=== PATIENT | male | born 1985 | race Caucasian/White ===

== ENCOUNTER 2016-03-16 11:33 | Emergency (ER) | payer OTHER ==
[~2016-03-16] VITALS: Ht 193 cm; Wt 76.8 kg
[~2016-03-16 11:33] MED LIST: BACTRIM,SEPT1 TABLET PO; BENTYL10 MG PO; CARAFATE1 GM PO; CARAFATE100 MG/ML PO; CEFADROXIL500 MG PO; CEFTIN500 MG PO; CIPRO500 MG PO; COUMADIN5 MG PO; Colace PO; Coumadin,Jantoven PO; DICLOFENAC SOD100 MG PO; DILAUDID; DILAUDID2 MG PO; DILAUDID4 MG PO; DOXYCYCLINE HY100 M3 PO; DOXYCYCLINE HY100 MG PO; Dilaudid PO; EPIPEN ADU0.3 MG/0.3 IM; FLAGYL500 MG PO; FLEXERIL5 MG PO; FLOMAX0.4 MG PO; HYDROCODON-ACE1 EAC7 PO; IBUPROFEN800 MG PO; IMODIUM MS REL1 EACH PO; LOMOTIL TABLET1 EACH PO; LOVENOX40 MG/0.4 SC; LOVENOX80 MG/0.8 SC; MELOXICAM15 MG PO; METAXALONE800 MG PO; METOCLOPRAMIDE10 MG PO; MOTRIN600 MG PO; MOTRIN800 MG PO; NAPROSYN500 MG; NAPROSYN500 MG PO; NAPROXEN500 MG PO; NO HOME MEDS; NOHOMEMEDS; NORCO 5/3251 TABLET PO; NORCO 7.5/321 TABLET PO; OMEPRAZOLE40 M1 PO; ONDANSETRON HCL4 MG PO; PANTOPRAZOLE SO40 MG PO; PERCOCET 5/31 TABLET PO; PHENERGAN25 MG PR; PREDNISONE50 MG PO; PRILOSEC20 MG PO; PRILOSEC40 MG PO; PROTONIX40 MG PO; Protonix PO; RANITIDINE HCL150 M1 PO; ROBAXIN; ROBAXIN500 MG PO; TIZANIDINE HCL2 MG PO; TRAMADOL HCL50 MG PO; TYLENOL REGULA325 MG PO; TYLENOL WITH C1 EACH PO; ULTRAM50 MG PO; VALIUM5 MG PO; VICODIN 5-3001 EACH PO; VICODIN,LORT1 TABLET PO; XARELTO15 MG PO; ZOFRAN ODT4 MG PO; ZOFRAN ODT8 MG PO; ZOFRAN4 MG PO; ZOFRAN8 MG PO; omeprazole
[2016-03-16] MEDS ORDERED: MOBIC7.5 MG PO (13:15)
[2016-03-16 13:30] VITALS: BP 121/72
== END 2016-03-16 13:31 | disposition home or self-care (01) ==
LOC: EME 11:33
DX: M94.261 Chondromalacia, right knee (principal); M94.262 Chondromalacia, left knee; Z88.0 Allergy status to penicillin; Z88.2 Allergy status to sulfonamides; Z88.6 Allergy status to analgesic agent
CPT/HCPCS: 73564; 99281; 99283; J1885

== ENCOUNTER 2016-03-29 11:58 | Emergency (ER) | payer OTHER ==
[~2016-03-29] VITALS: Ht 193 cm; Wt 78.0 kg
[~2016-03-29 11:58] MED LIST changes: +MOBIC7.5 MG PO
[2016-03-29] MEDS ORDERED: VOLTAREN-XR100 MG PO (12:38)
[2016-03-29] MEDS ORDERED: PROTONIX40 MG PO (12:38)
[2016-03-29 13:07] LABS: ADD MIUA? NO; BILIRUBIN NEGATIVE; BLOOD NEGATIVE; GLUCOSE (STRIP) NEGATIVE; KETONES NEGATIVE; LEUKOCYTES NEGATIVE; NITRITE NEGATIVE; PH, URINE 8.5 (5-8); PROTEIN (STRIP) NEGATIVE; SPECIFIC GRAVITY 1.016 (1.000-1.030); UCUL ADDED? NO; UROBILINOGEN 0.2 MG/DL (0.2-1.0)
[2016-03-29 13:10] LABS: HEMATOCRIT 46.2 % (38.0-50.0); MCH 31.6 PG (29.0-34.0); MCHC 35.1 G/DL (30.0-36.0); MCV 90.2 FL (86-99); MEAN PLAT.VOLUME 10.9 uM^3 (9.0-12.4); PLATELET COUNT 206 K/uL (156-360); RBC DIS.WIDTH-CV 12.5 % (11.8-14.6); RBC DIS.WIDTH-SD 40.9 % (39-53); RED BLOOD COUNT 5.12 M/uL (4.00-5.50); WHITE BLOOD COUNT 6.6 K/uL (4.1-10.2)
[2016-03-29 13:17] LABS: COLOR LT YELLOW ((YELLOW))
[2016-03-29 13:21] LABS: CHLORIDE 105 mEq/L (99-109); POTASSIUM 4.1 mEq/L (3.7-5.4); SODIUM 141 mEq/L (136-147)
[2016-03-29 13:24] LABS: GLUCOSE 90 mg/dL (70-99)
[2016-03-29 13:25] LABS: ANION GAP 11 MEQ/L (2-14); TOTAL BILIRUBIN 0.7 mg/dL (0.0-1.0)
[2016-03-29 13:27] LABS: ALKALINE PHOSPHATASE 94 IU/L (3-129); GFR ESTIMATE (CALCULATED) > 59 mL/min/
[2016-03-29 13:28] LABS: UREA NITROGEN (BUN) 16 mg/dL (9-23)
[2016-03-29 13:31] LABS: LIPASE 32 U/L (1.0-51.0)
[2016-03-29] MEDS ORDERED: ZOFRAN ODT4 MG PO (15:13)
[2016-03-29] MEDS ORDERED: ZANTAC150 MG PO (15:13)
[2016-03-29] MEDS ORDERED: LORTAB 5-325 M1 EACH PO (15:13)
[2016-03-29] MEDS ORDERED: BENTYL20 MG PO (15:13)
[2016-03-29 15:40] VITALS: BP 110/70
== END 2016-03-29 15:41 | disposition home or self-care (01) ==
LOC: EME 11:58
DX: R10.11 Right upper quadrant pain (principal); R19.7 Diarrhea, unspecified; K85.90 Acute pancreatitis without necrosis or infection, unspecified; Z87.442 Personal history of urinary calculi; Z86.718 Personal history of other venous thrombosis and embolism; Z86.14 Personal history of Methicillin resistant Staphylococcus aureus infection
CPT/HCPCS: 74020; 80053; 81003; 83690; 85027; 99281; 99285; J1885; J2405; J7030

== ENCOUNTER 2016-03-31 18:26 | Emergency (ER) | payer OTHER ==
[~2016-03-31] VITALS: Ht 193 cm; Wt 78.3 kg
[~2016-03-31 18:26] MED LIST changes: +BENTYL20 MG PO; +LORTAB 5-325 M1 EACH PO; +VOLTAREN-XR100 MG PO; +ZANTAC150 MG PO
[2016-03-31 18:46] LABS: MCH 31.4 PG (29.0-34.0); MCHC 34.7 G/DL (30.0-36.0); MCV 90.5 FL (86-99); MEAN PLAT.VOLUME 10.5 uM^3 (9.0-12.4); PLATELET COUNT 199 K/uL (156-360); RBC DIS.WIDTH-CV 12.3 % (11.8-14.6); RBC DIS.WIDTH-SD 39.8 % (39-53); RED BLOOD COUNT 4.75 M/uL (4.00-5.50); WHITE BLOOD COUNT 7.1 K/uL (4.1-10.2)
[2016-03-31 18:55] LABS: CHLORIDE 105 mEq/L (99-109); POTASSIUM 3.7 mEq/L (3.7-5.4); SODIUM 140 mEq/L (136-147)
[2016-03-31 18:58] LABS: GLUCOSE 124 mg/dL (70-99)
[2016-03-31 18:59] LABS: ANION GAP 9 MEQ/L (2-14)
[2016-03-31 19:00] LABS: ADD MIUA? NO; BILIRUBIN NEGATIVE; BLOOD NEGATIVE; COLOR YELLOW ((YELLOW)); GLUCOSE (STRIP) NEGATIVE; KETONES NEGATIVE; LEUKOCYTES NEGATIVE; NITRITE NEGATIVE; PROTEIN (STRIP) NEGATIVE; SPECIFIC GRAVITY 1.031 (1.000-1.030); UCUL ADDED? NO; UROBILINOGEN 0.2 MG/DL (0.2-1.0)
[2016-03-31 19:00] LABS: TOTAL BILIRUBIN 0.7 mg/dL (0.0-1.0)
[2016-03-31 19:01] LABS: ALKALINE PHOSPHATASE 84 IU/L (3-129); GFR ESTIMATE (CALCULATED) > 59 mL/min/
[2016-03-31 19:03] LABS: UREA NITROGEN (BUN) 19 mg/dL (9-23)
[2016-03-31 20:01] LABS: LIPASE 36 U/L (1.0-51.0)
[2016-03-31 20:03] LABS: AMPHETAMINE NEGATIVE (500 ng/mL); BARBITURATES NEGATIVE (200 ng/mL); BENZODIAZEPINES NEGATIVE (150 ng/mL); COCAINE NEGATIVE (150 ng/mL); INTERNAL CONTROLS VALID? YES; METHADONE NEGATIVE (200 ng/mL); METHAMPHETAMINE NEGATIVE (500 ng/mL); OPIATES (MORPHINE) PRESUMPTIVE POSITIVE (100 ng/mL); OXYCODONE NEGATIVE (100 ng/mL); PHENCYCLIDINE NEGATIVE (25 ng/mL); PROPOXYPHENE NEGATIVE (300 ng/mL); THC CANNABINOIDS NEGATIVE (50 ng/mL); TRICYCLIC ANTIDEPRESSANTS NEGATIVE (300 ng/mL)
[2016-03-31 20:04] LABS: ADD MEDTOX COMMENT Y
[2016-03-31] MEDS ORDERED: PROMETHAZINE HC25 M1 PO (22:17)
[2016-03-31] MEDS ORDERED: BENTYL20 MG PO (22:17)
[2016-03-31] MEDS ORDERED: PHENERGAN25 MG PR (22:17)
[2016-03-31 22:43] VITALS: BP 122/76
== END 2016-03-31 22:45 | disposition home or self-care (01) ==
LOC: EME 18:26 → EXP 18:26
DX: R10.11 Right upper quadrant pain (principal); R11.2 Nausea with vomiting, unspecified; K21.9 Gastro-esophageal reflux disease without esophagitis; J45.909 Unspecified asthma, uncomplicated; Z87.442 Personal history of urinary calculi; Z86.718 Personal history of other venous thrombosis and embolism; Z86.14 Personal history of Methicillin resistant Staphylococcus aureus infection
CPT/HCPCS: 74176; 80053; 81003; 83690; 84999; 85027; 99281; 99284; J2550; J3010

== ENCOUNTER 2016-04-02 16:09 | Emergency (ER) | payer OTHER ==
[~2016-04-02] VITALS: Ht 193 cm; Wt 78.8 kg
[~2016-04-02 16:09] MED LIST changes: +PROMETHAZINE HC25 M1 PO
[2016-04-02 16:49] LABS: HEMATOCRIT 45.4 % (38.0-50.0); MCH 31.2 PG (29.0-34.0); MCHC 34.8 G/DL (30.0-36.0); MCV 89.7 FL (86-99); MEAN PLAT.VOLUME 10.5 uM^3 (9.0-12.4); PLATELET COUNT 195 K/uL (156-360); RBC DIS.WIDTH-CV 12.2 % (11.8-14.6); RBC DIS.WIDTH-SD 39.2 % (39-53); RED BLOOD COUNT 5.06 M/uL (4.00-5.50); WHITE BLOOD COUNT 5.9 K/uL (4.1-10.2)
[2016-04-02 16:58] LABS: CHLORIDE 106 mEq/L (99-109); SODIUM 142 mEq/L (136-147)
[2016-04-02 17:00] LABS: GLUCOSE 95 mg/dL (70-99)
[2016-04-02 17:01] LABS: ANION GAP 11 MEQ/L (2-14)
[2016-04-02 17:03] LABS: POTASSIUM 4.5 mEq/L (3.7-5.4); TOTAL BILIRUBIN 0.5 mg/dL (0.0-1.0)
[2016-04-02 17:04] LABS: ALKALINE PHOSPHATASE 88 IU/L (3-129); GFR ESTIMATE (CALCULATED) > 59 mL/min/
[2016-04-02 17:05] LABS: UREA NITROGEN (BUN) 14 mg/dL (9-23)
[2016-04-02 17:13] LABS: ADD MIUA? NO; BILIRUBIN NEGATIVE; BLOOD NEGATIVE; COLOR YELLOW ((YELLOW)); GLUCOSE (STRIP) NEGATIVE; KETONES NEGATIVE; LEUKOCYTES NEGATIVE; NITRITE NEGATIVE; PH, URINE 7.5 (5-8); PROTEIN (STRIP) NEGATIVE; SPECIFIC GRAVITY 1.007 (1.000-1.030); UCUL ADDED? NO; UROBILINOGEN 0.2 MG/DL (0.2-1.0)
[2016-04-02 17:32] VITALS: BP 122/86
[2016-04-02 18:00] VITALS: BP 114/80
[2016-04-02] MEDS ORDERED: FLOMAX0.4 MG PO ×2 (18:28→18:29)
[2016-04-02 20:52] LABS: D-DIMER ELISA 0.17 mg/L FEU (< 0.57)
[2016-04-02 20:55] LABS: TROP-I INTERPRETATION NEGATIVE; TROPONIN-I < 0.01 ng/mL (0.0-0.30)
[2016-04-02 21:51] VITALS: BP 114/73
== END 2016-04-02 21:53 | disposition home or self-care (01) ==
LOC: EME 16:09
PROVIDERS: Emergency Medicine
DX: R10.9 Unspecified abdominal pain (principal); Z87.442 Personal history of urinary calculi; Z88.2 Allergy status to sulfonamides; Z88.6 Allergy status to analgesic agent; Z88.1 Allergy status to other antibiotic agents
CPT/HCPCS: 80053; 81003; 84484; 85027; 85379; 93005; 99281; 99285; J2270; J2405; J7030

== ENCOUNTER 2016-05-05 16:40 | Emergency (ER) | payer OTHER ==
[~2016-05-05] VITALS: Ht 193 cm; Wt 78.2 kg
[2016-05-05 17:33] LABS: EOSINOPHIL (%) 8.6 % (0-5); EOSINOPHIL COUNT 0.7 K/uL (0-0.3); HEMATOCRIT 39.6 % (38.0-50.0); IMMATURE GRANULOCYTE (%) 0.1 % (0.0-0.7); IMMATURE GRANULOCYTE COUNT 0.1 K/uL; MCH 30.9 PG (29.0-34.0); MCHC 35.6 G/DL (30.0-36.0); MCV 86.8 FL (86-99); MEAN PLAT.VOLUME 10.2 uM^3 (9.0-12.4); MONOCYTE (%) 5.2 % (3-12); MONOCYTE COUNT 0.4 K/uL (0-0.8); NEUTROPHIL (%) 60.4 % (45-76); NEUTROPHIL COUNT 4.7 K/uL (1.8-6.4); PLATELET COUNT 238 K/uL (156-360); RBC DIS.WIDTH-CV 12.1 % (11.8-14.6); RBC DIS.WIDTH-SD 37.6 % (39-53); RED BLOOD COUNT 4.56 M/uL (4.00-5.50); WHITE BLOOD COUNT 7.8 K/uL (4.1-10.2)
[2016-05-05 17:44] LABS: CHLORIDE 107 mEq/L (99-109); POTASSIUM 3.2 mEq/L (3.7-5.4); SODIUM 142 mEq/L (136-147)
[2016-05-05 17:46] LABS: GLUCOSE 97 mg/dL (70-99)
[2016-05-05 17:47] LABS: ANION GAP 9 MEQ/L (2-14)
[2016-05-05 17:48] LABS: TOTAL BILIRUBIN 0.6 mg/dL (0.0-1.0)
[2016-05-05 17:49] LABS: ALKALINE PHOSPHATASE 89 IU/L (3-129)
[2016-05-05 17:50] LABS: GFR ESTIMATE (CALCULATED) > 59 mL/min/
[2016-05-05 17:51] LABS: UREA NITROGEN (BUN) 15 mg/dL (9-23)
[2016-05-05 17:52] LABS: D-DIMER ELISA < 0.15 mg/L FEU (< 0.57)
[2016-05-05 17:53] LABS: TROP-I INTERPRETATION NEGATIVE; TROPONIN-I < 0.01 ng/mL (0.0-0.30)
[2016-05-05] MEDS ORDERED: PRILOSEC OTC20 MG PO (19:03)
[2016-05-05] MEDS ORDERED: CARAFATE1 GM PO (19:03)
[2016-05-05 19:10] VITALS: BP 110/68
== END 2016-05-05 19:20 | disposition home or self-care (01) ==
LOC: EME 16:40
PROVIDERS: Emergency Medicine
DX: K20.9 Esophagitis, unspecified (principal); Z88.2 Allergy status to sulfonamides; Z88.0 Allergy status to penicillin; Z88.6 Allergy status to analgesic agent
CPT/HCPCS: 71010; 80053; 84484; 85025; 85379; 93005; 99281; 99284; J2270; J2765; J7030; S0028

== ENCOUNTER 2016-07-14 16:33 | Emergency (ER) | payer OTHER ==
[~2016-07-14] VITALS: Ht 193 cm; Wt 75.6 kg
[~2016-07-14 16:33] MED LIST changes: +PRILOSEC OTC20 MG PO
[2016-07-14 17:21] LABS: ADD MIUA? NO; BILIRUBIN NEGATIVE; BLOOD NEGATIVE; COLOR YELLOW ((YELLOW)); GLUCOSE (STRIP) NEGATIVE; KETONES NEGATIVE; LEUKOCYTES NEGATIVE; NITRITE NEGATIVE; PROTEIN (STRIP) NEGATIVE; SPECIFIC GRAVITY 1.012 (1.000-1.030); UCUL ADDED? NO; UROBILINOGEN 0.2 MG/DL (0.2-1.0)
[2016-07-14 17:22] LABS: HEMATOCRIT 43.8 % (38.0-50.0); MCH 30.7 PG (29.0-34.0); MCHC 33.3 G/DL (30.0-36.0); MCV 92.2 FL (86-99); MEAN PLAT.VOLUME 10.7 uM^3 (9.0-12.4); PLATELET COUNT 235 K/uL (156-360); RBC DIS.WIDTH-CV 12.7 % (11.8-14.6); RBC DIS.WIDTH-SD 43.6 % (39-53); RED BLOOD COUNT 4.75 M/uL (4.00-5.50); WHITE BLOOD COUNT 6.2 K/uL (4.1-10.2)
[2016-07-14 17:31] LABS: CHLORIDE 109 mEq/L (99-109); POTASSIUM 3.5 mEq/L (3.7-5.4); SODIUM 142 mEq/L (136-147)
[2016-07-14 17:33] LABS: GLUCOSE 98 mg/dL (70-99)
[2016-07-14 17:35] LABS: ANION GAP 9 MEQ/L (2-14)
[2016-07-14 17:37] LABS: GFR ESTIMATE (CALCULATED) > 59 mL/min/
[2016-07-14 17:38] LABS: UREA NITROGEN (BUN) 11 mg/dL (9-23)
[2016-07-14 19:03] LABS: TOTAL BILIRUBIN 0.6 mg/dL (0.0-1.0)
[2016-07-14 19:04] LABS: ALKALINE PHOSPHATASE 74 IU/L (3-129)
[2016-07-14 19:07] LABS: DIRECT BILIRUBIN 0.2 mg/dL (0.0-0.3)
[2016-07-14 19:08] LABS: LIPASE 44 U/L (1.0-51.0)
[2016-07-14] MEDS ORDERED: BENTYL10 MG PO (19:30)
[2016-07-14 19:43] VITALS: BP 109/69
== END 2016-07-14 19:57 | disposition home or self-care (01) ==
LOC: EME 16:33
PROVIDERS: Physician Assistant Medical
DX: R10.32 Left lower quadrant pain (principal); J45.909 Unspecified asthma, uncomplicated; Z87.442 Personal history of urinary calculi; K21.9 Gastro-esophageal reflux disease without esophagitis; Z86.718 Personal history of other venous thrombosis and embolism; Z86.14 Personal history of Methicillin resistant Staphylococcus aureus infection; Z87.891 Personal history of nicotine dependence
CPT/HCPCS: 74176; 80048; 80076; 81003; 83690; 85027; 99281; 99284; J1885; J7030

== ENCOUNTER 2016-07-25 15:12 | Emergency (ER) | payer OTHER ==
[~2016-07-25] VITALS: Ht 193 cm; Wt 72.8 kg
[2016-07-25 17:08] LABS: HEMATOCRIT 46.4 % (38.0-50.0); MCH 31.1 PG (29.0-34.0); MCHC 34.5 G/DL (30.0-36.0); MCV 90.1 FL (86-99); MEAN PLAT.VOLUME 10.7 uM^3 (9.0-12.4); PLATELET COUNT 231 K/uL (156-360); RBC DIS.WIDTH-CV 12.6 % (11.8-14.6); RBC DIS.WIDTH-SD 41.4 % (39-53); RED BLOOD COUNT 5.15 M/uL (4.00-5.50)
[2016-07-25 17:09] LABS: WHITE BLOOD COUNT 9.5 K/uL (4.1-10.2)
[2016-07-25 17:15] LABS: CHLORIDE 104 mEq/L (99-109); POTASSIUM 3.7 mEq/L (3.7-5.4); SODIUM 140 mEq/L (136-147)
[2016-07-25 17:17] LABS: GLUCOSE 89 mg/dL (70-99)
[2016-07-25 17:19] LABS: ANION GAP 13 MEQ/L (2-14); TOTAL BILIRUBIN 0.9 mg/dL (0.0-1.0)
[2016-07-25 17:20] LABS: D-DIMER ELISA 0.17 mg/L FEU (< 0.57)
[2016-07-25 17:21] LABS: ALKALINE PHOSPHATASE 89 IU/L (3-129); GFR ESTIMATE (CALCULATED) > 59 mL/min/
[2016-07-25 17:22] LABS: UREA NITROGEN (BUN) 23 mg/dL (9-23)
[2016-07-25 17:26] LABS: TROP-I INTERPRETATION NEGATIVE; TROPONIN-I < 0.01 ng/mL (0.0-0.30)
[2016-07-25 17:55] LABS: ADD MIUA? YES; BILIRUBIN NEGATIVE; BLOOD NEGATIVE; COLOR YELLOW ((YELLOW)); GLUCOSE (STRIP) NEGATIVE; KETONES 20; LEUKOCYTES NEGATIVE; NITRITE NEGATIVE; PROTEIN (STRIP) 100
[2016-07-25 18:18] LABS: BACTERIA NONE SEEN /HPF; EPITHELIAL CELLS NONE SEEN /HPF; MUCUS 3+ /LPF; RED BLOOD CELLS 0-5 /HPF (0-5); UCUL ADDED? NO; UNCLASSIFIED CRYSTALS 2+ /HPF; WHITE BLOOD CELLS 0-5 /HPF (0-5)
[2016-07-25 18:41] VITALS: BP 109/73
== END 2016-07-25 18:45 | disposition home or self-care (01) ==
LOC: EME 15:12
PROVIDERS: Physician Assistant
DX: T67.0XXA Heatstroke and sunstroke, initial encounter (principal); X30.XXXA Exposure to excessive natural heat, initial encounter; Y93.89 Activity, other specified; Y92.89 Other specified places as the place of occurrence of the external cause; Y99.0 Civilian activity done for income or pay; R11.2 Nausea with vomiting, unspecified; R07.9 Chest pain, unspecified; R51 Headache; Q87.40 Marfan syndrome, unspecified; J45.909 Unspecified asthma, uncomplicated; K21.9 Gastro-esophageal reflux disease without esophagitis; Z87.442 Personal history of urinary calculi; Z87.891 Personal history of nicotine dependence
CPT/HCPCS: 71020; 80053; 81003; 84484; 85027; 85379; 93005; 99281; 99284; J1885; J2405; J7030

== ENCOUNTER 2016-08-21 20:25 | Emergency (ER) | payer OTHER ==
[~2016-08-21] VITALS: Ht 193 cm; Wt 74.4 kg
[2016-08-21 20:43] VITALS: BP 139/91
== END 2016-08-21 22:44 | disposition home or self-care (01) ==
LOC: EXP 20:25 → EME 20:25 → EXP 22:44
DX: S61.210A Laceration without foreign body of right index finger without damage to nail, initial encounter (principal); W27.8XXA Contact with other nonpowered hand tool, initial encounter; Z87.891 Personal history of nicotine dependence; Z88.0 Allergy status to penicillin; Z88.5 Allergy status to narcotic agent
CPT/HCPCS: 99281; 99284

== ENCOUNTER 2016-08-22 17:30 | Emergency (ER) | payer OTHER ==
[~2016-08-22] VITALS: Ht 193 cm; Wt 74.4 kg
[2016-08-22 20:29] VITALS: BP 141/100
== END 2016-08-22 20:35 | disposition home or self-care (01) ==
LOC: EME 17:30
PROC: 0HQFXZZ Repair Right Hand Skin, External Approach (ICD-10-PCS; principal; 2016-08-22)
DX: S61.210A Laceration without foreign body of right index finger without damage to nail, initial encounter (principal); W27.0XXA Contact with workbench tool, initial encounter
CPT/HCPCS: 99281; 99284

== ENCOUNTER 2016-08-26 20:15 | Emergency (ER) | payer OTHER ==
[~2016-08-26] VITALS: Ht 193 cm; Wt 74.7 kg
[2016-08-26 20:31] LABS: HEMATOCRIT 45.1 % (38.0-50.0); MCH 30.5 PG (29.0-34.0); MCHC 32.8 G/DL (30.0-36.0); MEAN PLAT.VOLUME 10.8 uM^3 (9.0-12.4); PLATELET COUNT 199 K/uL (156-360); RBC DIS.WIDTH-CV 12.3 % (11.8-14.6); RBC DIS.WIDTH-SD 42.4 % (39-53); RED BLOOD COUNT 4.85 M/uL (4.00-5.50); WHITE BLOOD COUNT 7.2 K/uL (4.1-10.2)
[2016-08-26 20:40] LABS: CHLORIDE 107 mEq/L (99-109); POTASSIUM 3.9 mEq/L (3.7-5.4); SODIUM 143 mEq/L (136-147)
[2016-08-26 20:42] LABS: GLUCOSE 89 mg/dL (70-99)
[2016-08-26 20:43] LABS: ANION GAP 8 MEQ/L (2-14)
[2016-08-26 20:44] LABS: TOTAL BILIRUBIN 0.6 mg/dL (0.0-1.0)
[2016-08-26 20:45] LABS: ALKALINE PHOSPHATASE 78 IU/L (3-129)
[2016-08-26 20:46] LABS: GFR ESTIMATE (CALCULATED) > 59 mL/min/
[2016-08-26 20:47] LABS: UREA NITROGEN (BUN) 14 mg/dL (9-23)
[2016-08-26 20:49] LABS: LIPASE 33 U/L (1.0-51.0)
[2016-08-26 21:10] LABS: CREATINE KINASE 219 IU/L (1-294)
[2016-08-26 21:22] LABS: BILIRUBIN NEGATIVE; BLOOD NEGATIVE; COLOR YELLOW ((YELLOW)); GLUCOSE (STRIP) NEGATIVE; KETONES NEGATIVE; LEUKOCYTES NEGATIVE; NITRITE NEGATIVE; PROTEIN (STRIP) NEGATIVE; SPECIFIC GRAVITY 1.017 (1.000-1.030)
[2016-08-26 21:27] LABS: ADD MIUA? NO; UCUL ADDED? NO
[2016-08-26] MEDS ORDERED: BENTYL20 MG PO (21:58)
[2016-08-26] MEDS ORDERED: ZOFRAN ODT4 MG PO (21:58)
[2016-08-26 22:18] VITALS: BP 115/75
== END 2016-08-26 22:19 | disposition home or self-care (01) ==
LOC: EXP 20:15 → EME 20:15 → EXP 22:19
DX: R10.11 Right upper quadrant pain (principal); R11.2 Nausea with vomiting, unspecified; Z90.49 Acquired absence of other specified parts of digestive tract; Z87.442 Personal history of urinary calculi; Z86.14 Personal history of Methicillin resistant Staphylococcus aureus infection
CPT/HCPCS: 74022; 80053; 81003; 82550; 83690; 85027; 87177; 87206; 87329; 87493; 87506; 99281; 99284; J0500; J3010

== ENCOUNTER 2016-09-25 15:14 | Emergency (ER) | payer OTHER ==
[~2016-09-25] VITALS: Ht 193 cm; Wt 74.0 kg
[2016-09-25 16:09] LABS: CHLORIDE 106 mEq/L (99-109); POTASSIUM 3.3 mEq/L (3.7-5.4); SODIUM 142 mEq/L (136-147)
[2016-09-25 16:11] LABS: GLUCOSE 96 mg/dL (70-99)
[2016-09-25 16:12] LABS: ANION GAP 15 MEQ/L (2-14)
[2016-09-25 16:15] LABS: GFR ESTIMATE (CALCULATED) > 59 mL/min/
[2016-09-25 16:16] LABS: UREA NITROGEN (BUN) 24 mg/dL (9-23)
[2016-09-25 16:17] LABS: CREATINE KINASE 480 IU/L (1-294); TOTAL CK 480 IU/L (1-294)
[2016-09-25 16:19] LABS: HEMATOCRIT 46.9 % (38.0-50.0); MCH 29.9 PG (29.0-34.0); MCHC 34.8 G/DL (30.0-36.0); MEAN PLAT.VOLUME 10.4 uM^3 (9.0-12.4); RBC DIS.WIDTH-CV 12.1 % (11.8-14.6); RBC DIS.WIDTH-SD 38.2 % (39-53); RED BLOOD COUNT 5.45 M/uL (4.00-5.50); WHITE BLOOD COUNT 8.1 K/uL (4.1-10.2)
[2016-09-25 16:21] LABS: MCV 86.1 FL (86-99); PLATELET COUNT 265 K/uL (156-360); TROP-I INTERPRETATION NEGATIVE; TROPONIN-I < 0.01 ng/mL (0.0-0.30)
[2016-09-25 16:23] LABS: CK-MB 1.5 ng/mL (0.0-4.9)
[2016-09-25 16:51] LABS: ADD MIUA? YES; BILIRUBIN NEGATIVE; BLOOD NEGATIVE; COLOR YELLOW ((YELLOW)); GLUCOSE (STRIP) NEGATIVE; KETONES 5; LEUKOCYTES NEGATIVE; NITRITE NEGATIVE; PROTEIN (STRIP) 100; SPECIFIC GRAVITY 1.024 (1.000-1.030)
[2016-09-25 17:01] LABS: BACTERIA RARE /HPF; EPITHELIAL CELLS NONE SEEN /HPF; GRANULAR CASTS 0-5 /LPF; MUCUS 3+ /LPF; RED BLOOD CELLS 15-20 /HPF (0-5); WHITE BLOOD CELLS 0-5 /HPF (0-5)
[2016-09-25] MEDS ORDERED: ULTRAM50 MG PO (19:22)
[2016-09-25 19:42] VITALS: BP 131/78
[2016-09-26] MEDS ORDERED: DICYCLOMINE HCL20 MG PO (18:17)
[2016-09-26] MEDS ORDERED: ZANTAC300 MG PO (18:19)
[2016-09-26] MEDS ORDERED: OMEPRAZOLE40 M1 PO (18:19)
[2016-09-26] MEDS ORDERED: TIZANIDINE HCL2 MG PO (18:20)
[2016-09-26] MEDS ORDERED: ULTRACET1 TABLET PO (18:20)
[2016-09-26] MEDS ORDERED: MELOXICAM15 MG PO (18:20)
[2016-09-26] MEDS ORDERED: NORCO 5/3251 TABLET PO (19:57)
[2016-09-26] MEDS ORDERED: ZOFRAN4 MG PO (19:57)
== END 2016-09-25 19:44 | disposition home or self-care (01) ==
LOC: EME 15:14
PROVIDERS: Physician Assistant
DX: E86.0 Dehydration (principal); K21.9 Gastro-esophageal reflux disease without esophagitis; Z87.442 Personal history of urinary calculi; Z88.6 Allergy status to analgesic agent; Z87.891 Personal history of nicotine dependence; Z88.8 Allergy status to other drugs, medicaments and biological substances; Z90.49 Acquired absence of other specified parts of digestive tract
CPT/HCPCS: 80048; 81003; 82550; 82553; 84484; 85027; 93005; 99281; 99285; J2405; J3010; J7030

== ENCOUNTER 2016-09-26 13:29 | Emergency (ER) | payer OTHER ==
[~2016-09-26] VITALS: Ht 193 cm; Wt 74.5 kg
[2016-09-26 14:39] LABS: HEMATOCRIT 42.2 % (38.0-50.0); MCH 30.6 PG (29.0-34.0); MCHC 33.6 G/DL (30.0-36.0); MCV 90.9 FL (86-99); MEAN PLAT.VOLUME 10.5 uM^3 (9.0-12.4); PLATELET COUNT 215 K/uL (156-360); RBC DIS.WIDTH-CV 12.4 % (11.8-14.6); RBC DIS.WIDTH-SD 41.1 % (39-53); RED BLOOD COUNT 4.64 M/uL (4.00-5.50); WHITE BLOOD COUNT 4.9 K/uL (4.1-10.2)
[2016-09-26 14:43] LABS: ADD MIUA? NO; BILIRUBIN NEGATIVE; BLOOD NEGATIVE; COLOR STRAW ((YELLOW)); GLUCOSE (STRIP) NEGATIVE; KETONES NEGATIVE; LEUKOCYTES NEGATIVE; NITRITE NEGATIVE; PROTEIN (STRIP) NEGATIVE; SPECIFIC GRAVITY 1.009 (1.000-1.030); UCUL ADDED? NO; UROBILINOGEN 0.2 MG/DL (0.2-1.0)
[2016-09-26 14:47] LABS: CHLORIDE 107 mEq/L (99-109); SODIUM 139 mEq/L (136-147)
[2016-09-26 14:49] LABS: GLUCOSE 88 mg/dL (70-99)
[2016-09-26 14:50] LABS: ANION GAP 8 MEQ/L (2-14)
[2016-09-26 14:51] LABS: POTASSIUM 4.1 mEq/L (3.7-5.4); TOTAL BILIRUBIN 0.9 mg/dL (0.0-1.0)
[2016-09-26 14:53] LABS: ALKALINE PHOSPHATASE 92 IU/L (3-129); GFR ESTIMATE (CALCULATED) > 59 mL/min/
[2016-09-26 14:56] LABS: LIPASE 159 U/L (1.0-51.0)
[2016-09-26 14:59] LABS: UREA NITROGEN (BUN) 17 mg/dL (9-23)
[2016-09-26 16:27] LABS: AMYLASE 128 IU/L (1-118)
[2016-09-26] MEDS ORDERED: DICYCLOMINE HCL20 MG PO (18:17)
[2016-09-26] MEDS ORDERED: ZANTAC300 MG PO (18:19)
[2016-09-26] MEDS ORDERED: OMEPRAZOLE40 M1 PO (18:19)
[2016-09-26] MEDS ORDERED: ULTRACET1 TABLET PO (18:20)
[2016-09-26] MEDS ORDERED: TIZANIDINE HCL2 MG PO (18:20)
[2016-09-26] MEDS ORDERED: MELOXICAM15 MG PO (18:20)
[2016-09-26] MEDS ORDERED: NORCO 5/3251 TABLET PO (19:57)
[2016-09-26] MEDS ORDERED: ZOFRAN4 MG PO (19:57)
[2016-09-26 20:12] VITALS: BP 117/86
== END 2016-09-26 20:20 | disposition home or self-care (01) ==
LOC: EME 13:29
DX: K85.90 Acute pancreatitis without necrosis or infection, unspecified (principal); K21.9 Gastro-esophageal reflux disease without esophagitis; J45.909 Unspecified asthma, uncomplicated; Z86.14 Personal history of Methicillin resistant Staphylococcus aureus infection; Z87.442 Personal history of urinary calculi; Z86.718 Personal history of other venous thrombosis and embolism; Z87.891 Personal history of nicotine dependence; Z90.49 Acquired absence of other specified parts of digestive tract
CPT/HCPCS: 80053; 81003; 82150; 83690; 85027; 99281; 99284; J2405; J3010; J7030

== ENCOUNTER 2016-09-28 09:57 | Emergency (ER) | payer OTHER ==
[~2016-09-28] VITALS: Ht 193 cm; Wt 74.1 kg
[~2016-09-28 09:57] MED LIST changes: +DICYCLOMINE HCL20 MG PO; +ULTRACET1 TABLET PO; +ZANTAC300 MG PO
[2016-09-28 10:47] LABS: ADD MIUA? NO; BILIRUBIN NEGATIVE; BLOOD NEGATIVE; COLOR STRAW ((YELLOW)); GLUCOSE (STRIP) NEGATIVE; KETONES NEGATIVE; LEUKOCYTES NEGATIVE; NITRITE NEGATIVE; PROTEIN (STRIP) NEGATIVE; SPECIFIC GRAVITY 1.009 (1.000-1.030); UCUL ADDED? NO; UROBILINOGEN 0.2 MG/DL (0.2-1.0)
[2016-09-28 11:07] LABS: EOSINOPHIL COUNT 0.2 K/uL (0-0.3); HEMATOCRIT 41.6 % (38.0-50.0); IMMATURE GRANULOCYTE (%) 0.2 % (0.0-0.7); INSTRUMENT ABS NEUTROPHIL CT 2.2 K/uL; LYMPHOCYTE COUNT 1.9 K/uL (1.0-2.8); MCH 30.1 PG (29.0-34.0); MCHC 33.9 G/DL (30.0-36.0); MCV 88.9 FL (86-99); MEAN PLAT.VOLUME 10.8 uM^3 (9.0-12.4); MONOCYTE (%) 4.8 % (3-12); MONOCYTE COUNT 0.2 K/uL (0-0.8); NEUTROPHIL (%) 47.7 % (45-76); NEUTROPHIL COUNT 2.2 K/uL (1.8-6.4); PLATELET COUNT 201 K/uL (156-360); RBC DIS.WIDTH-CV 11.9 % (11.8-14.6); RBC DIS.WIDTH-SD 38.8 % (39-53); RED BLOOD COUNT 4.68 M/uL (4.00-5.50); WHITE BLOOD COUNT 4.6 K/uL (4.1-10.2)
[2016-09-28 11:17] LABS: CHLORIDE 107 mEq/L (99-109); POTASSIUM 3.7 mEq/L (3.7-5.4); SODIUM 142 mEq/L (136-147)
[2016-09-28 11:19] LABS: GLUCOSE 88 mg/dL (70-99)
[2016-09-28 11:21] LABS: ANION GAP 13 MEQ/L (2-14); TOTAL BILIRUBIN 0.9 mg/dL (0.0-1.0)
[2016-09-28 11:23] LABS: ALKALINE PHOSPHATASE 82 IU/L (3-129); GFR ESTIMATE (CALCULATED) > 59 mL/min/
[2016-09-28 11:24] LABS: UREA NITROGEN (BUN) 13 mg/dL (9-23)
[2016-09-28 11:26] LABS: LIPASE 32 U/L (1.0-51.0)
[2016-09-28] MEDS ORDERED: PROMETHAZINE HC25 M1 PO (15:47)
[2016-09-28 16:37] VITALS: BP 91/62
== END 2016-09-28 16:38 | disposition home or self-care (01) ==
LOC: EME 09:57
PROVIDERS: Emergency Medicine
DX: R10.11 Right upper quadrant pain (principal); R11.2 Nausea with vomiting, unspecified; Z90.49 Acquired absence of other specified parts of digestive tract; K57.30 Diverticulosis of large intestine without perforation or abscess without bleeding; Z87.442 Personal history of urinary calculi; Z86.14 Personal history of Methicillin resistant Staphylococcus aureus infection; Z86.718 Personal history of other venous thrombosis and embolism; Z87.891 Personal history of nicotine dependence
CPT/HCPCS: 74177; 80053; 81003; 83690; 85025; 99281; 99285; J2270; J2405; J2765; J7030

== ENCOUNTER 2016-11-09 13:34 | Emergency (ER) | payer OTHER ==
[~2016-11-09] VITALS: Ht 193 cm; Wt 74.2 kg
[2016-11-09 14:59] LABS: HEMATOCRIT 41.6 % (38.0-50.0); MCH 30.7 PG (29.0-34.0); MCHC 34.9 G/DL (30.0-36.0); MCV 88.1 FL (86-99); MEAN PLAT.VOLUME 9.8 uM^3 (9.0-12.4); PLATELET COUNT 297 K/uL (156-360); RBC DIS.WIDTH-CV 12.1 % (11.8-14.6); RBC DIS.WIDTH-SD 39.3 % (39-53); RED BLOOD COUNT 4.72 M/uL (4.00-5.50); WHITE BLOOD COUNT 8.5 K/uL (4.1-10.2)
[2016-11-09 15:07] LABS: CHLORIDE 103 mEq/L (99-109); INTER. NORMALIZED RATIO 1.2; POTASSIUM 4.1 mEq/L (3.7-5.4); PROTHROMBIN TIME 13.4 SEC (10.2-12.9); SODIUM 139 mEq/L (136-147)
[2016-11-09 15:09] LABS: GLUCOSE 94 mg/dL (70-99); PTT 29.2 SEC (25-37)
[2016-11-09 15:11] LABS: ANION GAP 12 MEQ/L (2-14)
[2016-11-09 15:13] LABS: GFR ESTIMATE (CALCULATED) > 59 mL/min/
[2016-11-09 15:14] LABS: UREA NITROGEN (BUN) 16 mg/dL (9-23)
[2016-11-09 15:19] LABS: TROP-I INTERPRETATION NEGATIVE; TROPONIN-I < 0.01 ng/mL (0.0-0.30)
[2016-11-09 17:51] VITALS: BP 110/72
== END 2016-11-09 17:53 | disposition home or self-care (01) ==
LOC: EME 13:34
PROVIDERS: Emergency Medicine
DX: R55 Syncope and collapse (principal); R07.9 Chest pain, unspecified; J45.909 Unspecified asthma, uncomplicated; K21.9 Gastro-esophageal reflux disease without esophagitis; Z98.1 Arthrodesis status; Z86.718 Personal history of other venous thrombosis and embolism; Z87.891 Personal history of nicotine dependence; Z88.0 Allergy status to penicillin
CPT/HCPCS: 71020; 71275; 80048; 84484; 85027; 85610; 85730; 93005; 99281; 99285

== ENCOUNTER 2016-12-26 11:33 | Emergency (ER) | payer OTHER ==
[~2016-12-26] VITALS: Ht 193 cm; Wt 73.6 kg
[2016-12-26 13:47] LABS: BASOPHIL COUNT 0.1 K/uL (0-0.1); EOSINOPHIL (%) 8.5 % (0-5); EOSINOPHIL COUNT 0.9 K/uL (0-0.3); HEMATOCRIT 44.3 % (38.0-50.0); IMMATURE GRANULOCYTE (%) 0.3 % (0.0-0.7); INSTRUMENT ABS NEUTROPHIL CT 6.4 K/uL; MCH 30.4 PG (29.0-34.0); MCHC 33.6 G/DL (30.0-36.0); MCV 90.4 FL (86-99); MEAN PLAT.VOLUME 10.2 uM^3 (9.0-12.4); MONOCYTE (%) 6.2 % (3-12); MONOCYTE COUNT 0.6 K/uL (0-0.8); NEUTROPHIL (%) 64.7 % (45-76); NEUTROPHIL COUNT 6.4 K/uL (1.8-6.4); PLATELET COUNT 232 K/uL (156-360); RBC DIS.WIDTH-CV 12.1 % (11.8-14.6); RBC DIS.WIDTH-SD 40.1 % (39-53)
[2016-12-26 13:59] LABS: CHLORIDE 106 mEq/L (99-109); POTASSIUM 3.7 mEq/L (3.7-5.4); SODIUM 143 mEq/L (136-147)
[2016-12-26 14:01] LABS: GLUCOSE 77 mg/dL (70-99)
[2016-12-26 14:02] LABS: ANION GAP 12 MEQ/L (2-14)
[2016-12-26 14:03] LABS: TOTAL BILIRUBIN 0.6 mg/dL (0.0-1.0)
[2016-12-26 14:04] LABS: ALKALINE PHOSPHATASE 123 IU/L (3-129)
[2016-12-26 14:05] LABS: GFR ESTIMATE (CALCULATED) > 59 mL/min/
[2016-12-26 14:06] LABS: UREA NITROGEN (BUN) 12 mg/dL (9-23)
[2016-12-26 14:15] LABS: ADD MIUA? YES; BILIRUBIN NEGATIVE; BLOOD NEGATIVE; COLOR YELLOW ((YELLOW)); GLUCOSE (STRIP) NEGATIVE; KETONES NEGATIVE; LEUKOCYTES NEGATIVE; NITRITE NEGATIVE; PROTEIN (STRIP) NEGATIVE; SPECIFIC GRAVITY 1.024 (1.000-1.030); UROBILINOGEN 0.2 MG/DL (0.2-1.0)
[2016-12-26 14:22] LABS: BACTERIA RARE /HPF; EPITHELIAL CELLS RARE /HPF; MUCUS 1+ /LPF; RED BLOOD CELLS 0-5 /HPF (0-5); UCUL ADDED? NO; WHITE BLOOD CELLS 0-5 /HPF (0-5)
[2016-12-26 14:24] LABS: AMPHETAMINE NEGATIVE (500 ng/mL); BARBITURATES NEGATIVE (200 ng/mL); BENZODIAZEPINES NEGATIVE (150 ng/mL); COCAINE NEGATIVE (150 ng/mL); INTERNAL CONTROLS VALID? YES; METHADONE NEGATIVE (200 ng/mL); METHAMPHETAMINE NEGATIVE (500 ng/mL); OPIATES (MORPHINE) NEGATIVE (100 ng/mL); OXYCODONE NEGATIVE (100 ng/mL); PHENCYCLIDINE NEGATIVE (25 ng/mL); PROPOXYPHENE NEGATIVE (300 ng/mL); THC CANNABINOIDS NEGATIVE (50 ng/mL); TRICYCLIC ANTIDEPRESSANTS NEGATIVE (300 ng/mL)
[2016-12-26] MEDS ORDERED: MEDROL DOSEPAK4 MG PO (16:46)
[2016-12-26] MEDS ORDERED: PERCOCET 5/31 TABLET PO (16:46)
[2016-12-26 16:53] VITALS: BP 111/72
[2016-12-26] MEDS ORDERED: LORTAB 5-325 M1 EACH PO (17:03)
== END 2016-12-26 17:20 | disposition home or self-care (01) ==
LOC: EME 11:33
PROVIDERS: Emergency Medicine
DX: M54.5 Low back pain (principal); R20.0 Anesthesia of skin; R32 Unspecified urinary incontinence; W18.30XA Fall on same level, unspecified, initial encounter; Y92.79 Other farm location as the place of occurrence of the external cause; Z98.890 Other specified postprocedural states; K21.9 Gastro-esophageal reflux disease without esophagitis; J45.909 Unspecified asthma, uncomplicated; Z86.718 Personal history of other venous thrombosis and embolism; Z88.0 Allergy status to penicillin; Z88.8 Allergy status to other drugs, medicaments and biological substances; Z87.891 Personal history of nicotine dependence
CPT/HCPCS: 72158; 80053; 81003; 85025; 99281; 99285; J1100; J2060; J2270

== ENCOUNTER 2017-02-04 10:58 | Emergency (ER) | payer OTHER ==
[~2017-02-04] VITALS: Ht 193 cm; Wt 75.0 kg
[~2017-02-04 10:58] MED LIST changes: +MEDROL DOSEPAK4 MG PO
[2017-02-04 11:24] LABS: ADD MIUA? YES; BILIRUBIN NEGATIVE; BLOOD NEGATIVE; COLOR YELLOW ((YELLOW)); GLUCOSE (STRIP) NEGATIVE; KETONES NEGATIVE; LEUKOCYTES NEGATIVE; NITRITE NEGATIVE; PROTEIN (STRIP) NEGATIVE; SPECIFIC GRAVITY 1.013 (1.000-1.030); UROBILINOGEN 0.2 MG/DL (0.2-1.0)
[2017-02-04 11:30] LABS: BACTERIA RARE /HPF; CALCIUM OXALATE CRYSTALS 1+ /HPF; EPITHELIAL CELLS NONE SEEN /HPF; MUCUS TRACE /LPF; RED BLOOD CELLS 0-5 /HPF (0-5); UCUL ADDED? NO; WHITE BLOOD CELLS 0-5 /HPF (0-5)
[2017-02-04] MEDS ORDERED: MOTRIN600 MG PO (12:35)
[2017-02-04] MEDS ORDERED: FLEXERIL10 MG PO (12:35)
[2017-02-04 12:50] VITALS: BP 135/89
== END 2017-02-04 12:51 | disposition home or self-care (01) ==
LOC: EME 10:58
PROVIDERS: Emergency Medicine
DX: M54.41 Lumbago with sciatica, right side (principal); R35.0 Frequency of micturition; Z98.1 Arthrodesis status; Z87.442 Personal history of urinary calculi; Z86.14 Personal history of Methicillin resistant Staphylococcus aureus infection; Z86.718 Personal history of other venous thrombosis and embolism; Z87.891 Personal history of nicotine dependence
CPT/HCPCS: 72100; 72170; 81003; 99281; 99284

== ENCOUNTER 2017-03-15 17:45 | Emergency (ER) | payer OTHER ==
[~2017-03-15] VITALS: Ht 193 cm; Wt 76.7 kg
[~2017-03-15 17:45] MED LIST changes: +FLEXERIL10 MG PO
[2017-03-15 19:27] LABS: HEMATOCRIT 43.9 % (38.0-50.0); MCH 30.7 PG (29.0-34.0); MCHC 34.2 G/DL (30.0-36.0); MCV 89.8 FL (86-99); PLATELET COUNT 241 K/uL (156-360); RBC DIS.WIDTH-SD 42.5 % (39-53); RED BLOOD COUNT 4.89 M/uL (4.00-5.50); WHITE BLOOD COUNT 10.5 K/uL (4.1-10.2)
[2017-03-15 19:39] LABS: ALBUMIN 4.9 g/dL (3.2-4.8); CHLORIDE 104 mEq/L (99-109); POTASSIUM 3.8 mEq/L (3.7-5.4); SODIUM 139 mEq/L (136-147)
[2017-03-15 19:40] LABS: AMYLASE 70 IU/L (1-118)
[2017-03-15 19:41] LABS: GLUCOSE 91 mg/dL (70-99); TOTAL PROTEIN 7.5 g/dL (6.4-8.3)
[2017-03-15 19:43] LABS: TOTAL BILIRUBIN 0.5 mg/dL (0.0-1.0)
[2017-03-15 19:45] LABS: ALKALINE PHOSPHATASE 117 IU/L (3-129); CREATININE 0.9 mg/dL (0.6-1.3); GFR ESTIMATE (CALCULATED) > 59 mL/min/ (58.99-99999)
[2017-03-15 19:46] LABS: UREA NITROGEN (BUN) 14 mg/dL (9-23)
[2017-03-15 19:47] LABS: AST (GOT) 21 IU/L (2-34)
[2017-03-15 19:48] LABS: ALT (GPT) 20 IU/L (3-49)
[2017-03-15 19:49] LABS: LIPASE 30 U/L (1.0-51.0)
[2017-03-15] MEDS ORDERED: ZOFRAN4 MG PO (20:58)
[2017-03-15] MEDS ORDERED: BENTYL20 MG PO (20:58)
[2017-03-15 21:26] VITALS: BP 123/85
[2017-03-15 21:30] LABS: APPEARANCE CLEAR ((CLEAR)); BILIRUBIN NEGATIVE; BLOOD NEGATIVE; COLOR YELLOW ((YELLOW)); GLUCOSE (STRIP) NEGATIVE; KETONES NEGATIVE; LEUKOCYTES NEGATIVE; NITRITE NEGATIVE; PROTEIN (STRIP) NEGATIVE; SPECIFIC GRAVITY 1.015 (1.000-1.030); UCUL ADDED? NO; UROBILINOGEN 0.2 MG/DL (0.2-1.0)
== END 2017-03-15 21:27 | disposition home or self-care (01) ==
LOC: EME 17:45
DX: R10.11 Right upper quadrant pain (principal); K21.9 Gastro-esophageal reflux disease without esophagitis; E05.90 Thyrotoxicosis, unspecified without thyrotoxic crisis or storm; J45.909 Unspecified asthma, uncomplicated; Z87.891 Personal history of nicotine dependence; Z86.718 Personal history of other venous thrombosis and embolism; Z87.442 Personal history of urinary calculi; Z86.14 Personal history of Methicillin resistant Staphylococcus aureus infection; Z88.2 Allergy status to sulfonamides; Z88.1 Allergy status to other antibiotic agents; Z88.0 Allergy status to penicillin; Z88.5 Allergy status to narcotic agent; Z88.8 Allergy status to other drugs, medicaments and biological substances
CPT/HCPCS: 80053; 81003; 82150; 83690; 85027; 99281; 99285; J1885; J2405

== ENCOUNTER 2017-04-07 17:49 | Emergency (ER) | payer OTHER ==
[~2017-04-07] VITALS: Ht 193 cm; Wt 76.4 kg
[2017-04-07] MEDS ORDERED: MOTRIN600 MG PO (20:52)
[2017-04-07] MEDS ORDERED: ROBAXIN750 MG PO (20:58)
[2017-04-07 21:20] VITALS: BP 116/84
== END 2017-04-07 20:20 | disposition home or self-care (01) ==
LOC: EME 17:49
DX: S39.012A Strain of muscle, fascia and tendon of lower back, initial encounter (principal); G89.29 Other chronic pain; W01.0XXA Fall on same level from slipping, tripping and stumbling without subsequent striking against object, initial encounter; Y93.02 Activity, running; Z98.1 Arthrodesis status; Z88.2 Allergy status to sulfonamides; Z88.1 Allergy status to other antibiotic agents; Z88.0 Allergy status to penicillin; Z91.09 Other allergy status, other than to drugs and biological substances
CPT/HCPCS: 72110; 99281; 99284

== ENCOUNTER 2017-04-08 16:21 | Emergency (ER) | payer OTHER ==
[~2017-04-08] VITALS: Ht 193 cm; Wt 77.9 kg
[~2017-04-08 16:21] MED LIST changes: +ROBAXIN750 MG PO
[2017-04-08 17:06] VITALS: BP 125/91
== END 2017-04-08 17:22 | disposition home or self-care (01) ==
LOC: EME 16:21
DX: I80.8 Phlebitis and thrombophlebitis of other sites (principal); Z91.81 History of falling; Z86.718 Personal history of other venous thrombosis and embolism; R00.0 Tachycardia, unspecified
CPT/HCPCS: 99281; 99283

== ENCOUNTER 2017-04-25 12:58 | Emergency (ER) | payer OTHER ==
[~2017-04-25] VITALS: Ht 193 cm; Wt 77.0 kg
[2017-04-25 14:36] LABS: HEMATOCRIT 47.2 % (38.0-50.0); HEMOGLOBIN 16.3 G/DL (12.5-16.6); MCH 31.2 PG (29.0-34.0); MCHC 34.5 G/DL (30.0-36.0); MCV 90.2 FL (86-99); PLATELET COUNT 242 K/uL (156-360); RBC DIS.WIDTH-CV 12.9 % (11.8-14.6); RBC DIS.WIDTH-SD 42.5 % (39-53); RED BLOOD COUNT 5.23 M/uL (4.00-5.50); WHITE BLOOD COUNT 8.9 K/uL (4.1-10.2)
[2017-04-25 14:45] LABS: ALBUMIN 5.2 g/dL (3.2-4.8); CHLORIDE 104 mEq/L (99-109); SODIUM 141 mEq/L (136-147)
[2017-04-25 14:47] LABS: GLUCOSE 104 mg/dL (70-99); TOTAL PROTEIN 8.1 g/dL (6.4-8.3)
[2017-04-25 14:49] LABS: TOTAL BILIRUBIN 0.7 mg/dL (0.0-1.0)
[2017-04-25 14:51] LABS: ALKALINE PHOSPHATASE 118 IU/L (3-129); GFR ESTIMATE (CALCULATED) > 59 mL/min/ (58.99-99999)
[2017-04-25 14:52] LABS: UREA NITROGEN (BUN) 15 mg/dL (9-23)
[2017-04-25 14:53] LABS: AST (GOT) 21 IU/L (2-34)
[2017-04-25 14:54] LABS: ALT (GPT) 28 IU/L (3-49); LIPASE 22 U/L (1.0-51.0)
[2017-04-25 15:06] LABS: APPEARANCE CLEAR ((CLEAR)); BILIRUBIN NEGATIVE; BLOOD NEGATIVE; COLOR YELLOW ((YELLOW)); GLUCOSE (STRIP) NEGATIVE; KETONES NEGATIVE; LEUKOCYTES NEGATIVE; NITRITE NEGATIVE; PROTEIN (STRIP) NEGATIVE; SPECIFIC GRAVITY 1.012 (1.000-1.030); UCUL ADDED? NO; UROBILINOGEN 0.2 MG/DL (0.2-1.0)
[2017-04-25] MEDS ORDERED: ZOFRAN ODT4 MG PO (15:58)
[2017-04-25] MEDS ORDERED: ANASPAZ0.125 MG PO (15:58)
[2017-04-25 16:38] VITALS: BP 135/71
== END 2017-04-25 16:40 | disposition home or self-care (01) ==
LOC: EME 12:58
DX: R10.11 Right upper quadrant pain (principal); R11.2 Nausea with vomiting, unspecified; K21.9 Gastro-esophageal reflux disease without esophagitis; J45.909 Unspecified asthma, uncomplicated; R56.9 Unspecified convulsions; Z87.19 Personal history of other diseases of the digestive system; Z87.891 Personal history of nicotine dependence; Z87.442 Personal history of urinary calculi; Z86.718 Personal history of other venous thrombosis and embolism; Z88.1 Allergy status to other antibiotic agents; Z88.2 Allergy status to sulfonamides; Z88.0 Allergy status to penicillin
CPT/HCPCS: 80053; 81003; 83690; 85027; 99281; 99284

== ENCOUNTER 2017-06-10 12:37 | Emergency (ER) | payer OTHER ==
[~2017-06-10] VITALS: Ht 193 cm; Wt 74.7 kg
[~2017-06-10 12:37] MED LIST changes: +ANASPAZ0.125 MG PO
[2017-06-10 13:54] LABS: RED BLOOD COUNT 4.95 M/uL (4.00-5.50); WHITE BLOOD COUNT 6.4 K/uL (4.1-10.2)
[2017-06-10 13:55] LABS: HEMOGLOBIN 15.7 G/DL (12.5-16.6); MCH 31.7 PG (29.0-34.0); MCHC 34.9 G/DL (30.0-36.0); MCV 90.9 FL (86-99); PLATELET COUNT 188 K/uL (156-360); RBC DIS.WIDTH-CV 12.9 % (11.8-14.6); RBC DIS.WIDTH-SD 42.8 % (39-53)
[2017-06-10 14:02] LABS: ALBUMIN 4.8 g/dL (3.2-4.8)
[2017-06-10 14:03] LABS: CHLORIDE 107 mEq/L (99-109); POTASSIUM 3.7 mEq/L (3.7-5.4); SODIUM 141 mEq/L (136-147)
[2017-06-10 14:05] LABS: GLUCOSE 96 mg/dL (70-99); TOTAL PROTEIN 7.1 g/dL (6.4-8.3)
[2017-06-10 14:07] LABS: TOTAL BILIRUBIN 0.8 mg/dL (0.0-1.0)
[2017-06-10 14:08] LABS: ALKALINE PHOSPHATASE 95 IU/L (3-129)
[2017-06-10 14:09] LABS: GFR ESTIMATE (CALCULATED) > 59 mL/min/ (58.99-99999)
[2017-06-10 14:10] LABS: AST (GOT) 16 IU/L (2-34); UREA NITROGEN (BUN) 15 mg/dL (9-23)
[2017-06-10 14:12] LABS: ALT (GPT) 14 IU/L (3-49)
[2017-06-10 18:55] VITALS: BP 110/67
== END 2017-06-10 18:55 | disposition home or self-care (01) ==
LOC: EME 12:37
PROVIDERS: Emergency Medicine Emergency Medical Services
DX: M54.5 Low back pain (principal); M47.9 Spondylosis, unspecified; Z98.1 Arthrodesis status; J45.909 Unspecified asthma, uncomplicated; K21.9 Gastro-esophageal reflux disease without esophagitis; Z87.442 Personal history of urinary calculi; Z87.891 Personal history of nicotine dependence; Z86.718 Personal history of other venous thrombosis and embolism; Z86.14 Personal history of Methicillin resistant Staphylococcus aureus infection; Z90.49 Acquired absence of other specified parts of digestive tract; Z88.2 Allergy status to sulfonamides; Z88.1 Allergy status to other antibiotic agents; Z88.0 Allergy status to penicillin; Z88.5 Allergy status to narcotic agent
CPT/HCPCS: 72131; 72158; 80053; 81003; 83605; 85027; 87040; 99281; 99285; J2060; J3010; J7040

== ENCOUNTER 2017-07-31 15:19 | Emergency (ER) | payer OTHER ==
[~2017-07-31] VITALS: Ht 193 cm; Wt 77.2 kg
[2017-07-31 17:48] VITALS: BP 124/82
== END 2017-07-31 17:50 | disposition home or self-care (01) ==
LOC: EME 15:19
PROC: 0HQFXZZ Repair Right Hand Skin, External Approach (ICD-10-PCS; principal; 2017-07-31)
DX: S61.212A Laceration without foreign body of right middle finger without damage to nail, initial encounter (principal); W26.8XXA Contact with other sharp object(s), not elsewhere classified, initial encounter
CPT/HCPCS: 99281; 99284

== ENCOUNTER 2017-08-19 16:27 | Emergency (ER) | payer OTHER ==
[~2017-08-19] VITALS: Ht 193 cm; Wt 75.2 kg
[2017-08-19] MEDS ORDERED: VALIUM5 MG PO (20:57)
[2017-08-19 21:03] VITALS: BP 122/88
== END 2017-08-19 21:04 | disposition home or self-care (01) ==
LOC: EME 16:27 → RME 16:27
DX: M54.5 Low back pain (principal); Z98.1 Arthrodesis status; Z88.0 Allergy status to penicillin; Z88.2 Allergy status to sulfonamides; Z88.1 Allergy status to other antibiotic agents; Z88.5 Allergy status to narcotic agent
CPT/HCPCS: 72100; 99281; 99284; J1885

== ENCOUNTER 2017-09-26 18:37 | Emergency (ER) | payer OTHER ==
[~2017-09-26] VITALS: Ht 193 cm; Wt 73.0 kg
[2017-09-26 18:59] LABS: HEMATOCRIT 42.4 % (38.0-50.0); HEMOGLOBIN 14.6 G/DL (12.5-16.6); MCH 31.3 PG (29.0-34.0); MCHC 34.4 G/DL (30.0-36.0); MCV 90.8 FL (86-99); PLATELET COUNT 206 K/uL (156-360); RBC DIS.WIDTH-CV 12.6 % (11.8-14.6); RBC DIS.WIDTH-SD 41.3 % (39-53); RED BLOOD COUNT 4.67 M/uL (4.00-5.50); WHITE BLOOD COUNT 6.2 K/uL (4.1-10.2)
[2017-09-26 19:12] LABS: ALBUMIN 4.9 g/dL (3.2-4.8); CHLORIDE 105 mEq/L (99-109); POTASSIUM 3.7 mEq/L (3.7-5.4); SODIUM 142 mEq/L (136-147)
[2017-09-26 19:15] LABS: GLUCOSE 90 mg/dL (70-99); TOTAL PROTEIN 7.4 g/dL (6.4-8.3)
[2017-09-26 19:17] LABS: TOTAL BILIRUBIN 0.8 mg/dL (0.0-1.0)
[2017-09-26 19:18] LABS: ALKALINE PHOSPHATASE 108 IU/L (3-129); GFR ESTIMATE (CALCULATED) > 59 mL/min/ (58.99-99999)
[2017-09-26 19:19] LABS: UREA NITROGEN (BUN) 12 mg/dL (9-23)
[2017-09-26 19:20] LABS: AST (GOT) 21 IU/L (2-34)
[2017-09-26 19:21] LABS: ALT (GPT) 18 IU/L (3-49)
[2017-09-26 20:48] LABS: APPEARANCE CLEAR ((CLEAR)); BILIRUBIN NEGATIVE; BLOOD NEGATIVE; COLOR YELLOW ((YELLOW)); GLUCOSE (STRIP) NEGATIVE; KETONES NEGATIVE; LEUKOCYTES NEGATIVE; NITRITE NEGATIVE; PROTEIN (STRIP) NEGATIVE; UCUL ADDED? NO; UROBILINOGEN 0.2 MG/DL (0.2-1.0)
[2017-09-26 20:57] LABS: CREATINE KINASE 257 IU/L (1-294); TOTAL CK 257 IU/L (1-294)
[2017-09-26 21:03] LABS: CK-MB 1.4 ng/mL (0.0-4.9); CKMB RELATIVE INDEX 0.5 (0.0-3.9)
[2017-09-26] MEDS ORDERED: BENTYL20 MG PO (22:07)
[2017-09-26 22:54] VITALS: BP 140/95
== END 2017-09-26 22:55 | disposition home or self-care (01) ==
LOC: EME 18:37 → EXP 18:37
DX: R10.11 Right upper quadrant pain (principal); K21.9 Gastro-esophageal reflux disease without esophagitis; J45.909 Unspecified asthma, uncomplicated; Z87.442 Personal history of urinary calculi; Z90.49 Acquired absence of other specified parts of digestive tract; Z88.2 Allergy status to sulfonamides; Z88.0 Allergy status to penicillin; Z88.1 Allergy status to other antibiotic agents; Z88.5 Allergy status to narcotic agent
CPT/HCPCS: 80053; 81003; 82550; 82553; 85027